=== PATIENT | female | born 1960 | race Caucasian/White ===

== ENCOUNTER 2023-05-16 16:20 | Emergency (ER) | payer BC ==
[~2023-05-16] VITALS: Ht 165 cm; Wt 92.0 kg
--- NOTE | 2023-05-16 16:35 | ED Dyspnea ---
General Stated Complaint: LOW O2 History of Present Illness Date Seen by Provider: May 16, 2023 Time Seen by Provider: 16:32 Initial Comments 63 yr F is here with c/o SOB and myalgia , and cough for the past 1 week.Pt went to urgent care yesterday and was given Amoxicillin, Azithro, and Albuterol inhaler for pneumonia. Pt did not have a covid or flu test, and did not have a CXR at urgent care. Denies fever, palpitations, GI symptoms. Allergies and Home Medications Allergies Coded Allergies: No Known Drug Allergies (Unverified , 05/16/23) Patient Home Medication List Home Medication List Reviewed: Yes Review of Systems Review of Systems Constitutional: chills, malaise EENTM: nose congestion Respiratory: see HPI, cough, short of breath, wheezing Cardiovascular: no symptoms reported Gastrointestinal: no symptoms reported Genitourinary: no symptoms reported Musculoskeletal: no symptoms reported Skin: no symptoms reported Psychiatric/Neurological: No Symptoms Reported Physical Exam Vital Signs Vital Signs - First Documented 05/16/23 17:12 Temp 37.1 Pulse 90 Resp 18 B/P (MAP) 142/82 (102) Pulse Ox 91 O2 Delivery Room Air Capillary Refill : Height, Weight, BMI Height: '" Weight: lbs. oz. kg; BMI Method: General Appearance: No Apparent Distress, WD/WN HEENT: PERRL/EOMI, Pharynx Normal Neck: Full Range of Motion, Normal Inspection, Non Tender Respiratory: No Accessory Muscle Use, No Respiratory Distress, Rhonci (on right side), Wheezing Cardiovascular: Regular Rate, Rhythm, No Edema Gastrointestinal: Normal Bowel Sounds, Non Tender, Soft Extremity: Normal Range of Motion Neurologic/Psychiatric: Alert, Oriented x3, No Motor/Sensory Deficits Skin: Normal Color Progress/Results/Core Measures Results/Orders Lab Results Laboratory Tests Test 05/16/23 16:55 Range/Units Influenza Type A (RT-PCR) Not Detected Not Detecte Influenza Type B (RT-PCR) Not Detected Not Detecte SARS-CoV-2 RNA (RT-PCR) Detected H Not Detecte My Orders Orders - LIGIA VALENCIA MD Influenza A And B By Pcr (05/16/23 16:41) Covid 19 Inhouse Test (05/16/23 16:41) Chest 1 View Ap/Pa Only (05/16/23 16:41) Ipratropium/Albuterol Inh Soln (Ipratrop (05/16/23 17:45) Svn Small Volume Nebulizer (05/16/23 17:37) Vital Signs/I&O 05/16/23 17:12 Temp 37.1 Pulse 90 Resp 18 B/P (MAP) 142/82 (102) Pulse Ox 91 O2 Delivery Room Air Progress Progress Note : Progress Note 1. COVID POSITIVE PNEUMONIA - CXR: Patchy right-sided infiltrate or atelectasis. - COVID test positive - Rapid flu test: negative - Duo neb x 1 in ER - Dexa 10mg im STAT in ER - Continue using Albuterol inhaler as needed for SOB. Take 2 puffs every 4 hours as needed for shortness of breath - Advised Vitamin C, Zinc, and Vitamin D - Adequate hydration and nutrition advised - Quarantine for 5 days - Keep mobile with non-exertional walks. - Prescription for Tessalon Perles given to be taken every 8 hours as needed for cough. - Symptomatic treatment with Tylenol cold and flu which is over the counter - Follow up with PCP as needed -The patient was seen in the ED, and treated appropriately to presentation at a specific point in time. Patient is informed that there is a possibility that disease and illness can evolve and change in acuity rapidly or slowly after patient is discharged from the ER. Precautionary advice given to the patient for immediate return to ER if symptoms worsen or do not resolve, and to seek emergency care sooner rather than later. Pt also advised on the importance of PCP follow up and compliance with management and follow up plan with PCP and/or specialist, as this is part of the management plan. Pt verbally expressed understanding. Diagnostic Imaging Diagonstic Imaging: Xray Plain Films/CT/US/NM/MRI: chest Comments [facility]. [place], [place] NAME: JADESARITA [facility] REC#: [id number] PT STATUS: REG ER : 1960 PHYSICIAN: LIGIA VALENCIA MD ADMIT DATE: 05/16/23/ER FS Draft Date of Exam:05/16/23 CHEST 1 VIEW AP/PA ONLY INDICATION: Cough and shortness of air. TIME OF EXAM: 04:44 p.m. COMPARISON: No prior studies available for comparison. FINDINGS: Heart size is normal. There is some patchy infiltrate or atelectasis in the right midlung field and right base. Left lung is clear. There is no effusion or pneumothorax identified. IMPRESSION: Patchy right-sided infiltrate or atelectasis. Dictated on workstation # [id number] Dict: 05/16/23 1659 Trans: 05/16/23 1703 [id number] [id number] Interpreted by: FELICIANO PHAN MD Electronically signed by: Departure Impression Primary Impression: Pneumonia due to COVID-19 virus Disposition: HOME, SELF-CARE Condition: Stable Departure-Patient Inst. Referrals: NICOLLE HUBER APRN (PCP/Family) Primary Care Physician Patient Instructions: Prone Position, COVID-19 (DC) Add. Discharge Instructions: - Continue using Albuterol inhaler as needed for SOB. Take 2 puffs every 4 hours as needed for shortness of breath - Advised Vitamin C, Zinc, and Vitamin D - Adequate hydration and nutrition advised - Quarantine for 5 days - Keep mobile with non-exertional walks. - Prescription for Tessalon Perles given to be taken every 8 hours as needed for cough. - Symptomatic treatment with Tylenol cold and flu which is over the counter - Follow up with PCP as needed - Prone position instructions included Scripts Benzonatate (TESSALON PERLES) 100 Mg Capsule 100 MG PO Q8H for Cough for 5 Days, #10 CAP Prov: LIGIA VALENCIA MD 05/16/23 LIGIA VALENCIA MD May 16, 2023 16:35
--- NOTE | 2023-05-16 17:03 | Diagnostic Imaging Report ---
INDICATION: Cough and shortness of air. TIME OF EXAM: 04:44 p.m. COMPARISON: No prior studies available for comparison. FINDINGS: Heart size is normal. There is some patchy infiltrate or atelectasis in the right midlung field and right base. Left lung is clear. There is no effusion or pneumothorax identified. IMPRESSION: Patchy right-sided infiltrate or atelectasis. Dictated by: Dictated on workstation # [id number]
[2023-05-16 17:12] VITALS: BP 142/82
[2023-05-16] MEDS ORDERED: RT-Ipratropium/Albuterol NEB 3 ML VIAL INH ONE (17:45)
[2023-05-16] MEDS ORDERED: dexAMETHasone INJ 10 MG/ML 1 ML VIAL IM ONE (17:45)
[2023-05-16] MEDS ORDERED: dexAMETHasone INJ 10 MG/ML 1 ML VIAL ONE (17:50)
[2023-05-16] MEDS ORDERED: BENZ100C18 PO (17:52)
== END 2023-05-16 18:00 | disposition home or self-care (01) ==
LOC: ER FS 16:24
DX: U07.1 COVID-19 (principal); J12.82 Pneumonia due to coronavirus disease 2019; R06.02 Shortness of breath; R91.8 Other nonspecific abnormal finding of lung field
CPT/HCPCS: 71045; 87636; 99284